=== PATIENT | female | born 1975 | race Caucasian/White ===

== ENCOUNTER 2018-06-18 15:47 | Emergency (ER) | payer OTHER ==
[2018-06-18 16:40] VITALS: BP 103/54
--- NOTE | 2018-06-18 16:41 | UC ---
Respiratory Complaint HPI - HPI Summary HPI Summary: 43 yo female presents with cough and chest congestion for the last week getting progressively worse. Has felt feverish, but has not taken her temperature. She has a hx of asthma and "walking pna". Has an albuterol inhaler at home, but has not been using it. Denies sinus symptoms, SOB, chest pain, n/v. - History of Current Complaint Chief Complaint: UCRespiratory Stated Complaint: COUGH,SORE THROAT Time Seen by Provider: 06/18/18 16:41 Hx Obtained From: Patient Hx Last Menstrual Period: 06/08/2018 Onset/Duration: Gradual Onset Severity Initially: Mild Severity Currently: Moderate Pain Intensity: 5 Pain Scale Used: 0-10 Numeric Character: Cough: Nonproductive - Allergies/Home Medications Allergies/Adverse Reactions: Allergies Allergy/AdvReac Type Severity Reaction Status Date / Time pseudoephedrine Allergy Palpitation Verified 06/18/18 16:34 s Home Medications: Home Medications Fluticasone-Salmeterol 250-50* [Advair Diskus 250-50*] 1 puff INH DAILY [History Confirmed 06/18/18] PMH/Surg Hx/FS Hx/Imm Hx Respiratory History: Asthma - Surgical History Surgical History: Yes Surgery Procedure, Year, and Place: c section. kidney stones "blasted" - Family History Known Family History: Positive: Respiratory Disease - Social History Occupation: Employed Full-time Lives: With Family Alcohol Use: Occasionally Substance Use Type: None Smoking Status (MU): Never Smoked Tobacco Review of Systems All Other Systems Reviewed And Are Negative: Yes Constitutional: Positive: Negative Skin: Positive: Negative Eyes: Positive: Negative ENT: Positive: Sore Throat Respiratory: Positive: Cough Cardiovascular: Positive: Negative Gastrointestinal: Positive: Negative Neurovascular: Positive: Negative Neurological: Positive: Negative Psychological: Positive: Negative Physical Exam - Summary Physical Exam Summary: GENERAL: NAD. WDWN. No pain distress. SKIN: No rashes, sores, lesions, or open wounds. HEENT: Head: AT/NC Eyes: Conjunctiva clear without inflammation or discharge. Ears: Hearing grossly normal. TMs intact, no bulging, erythema, or edema. Nose: Nasal mucosa pink and moist. NTTP maxillary and frontal sinus. Throat: Posterior oropharynx without exudates, erythema, or tonsillar enlargement. Uvula midline. NECK: Supple. Nontender. No lymphadenopathy. CHEST: Mild wheezing throughout. No r/r. No accessory muscle use. Breathing comfortably and in no distress. CV: RRR. Without m/r/g. Pulses intact. Cap refill <2seconds NEURO: Alert. PSYCH: Age appropriate behavior. Triage Information Reviewed: Yes Vital Signs: Initial Vital Signs Temp 98.8 F 06/18/18 16:35 Pulse 76 06/18/18 16:35 Resp 18 06/18/18 16:35 BP 103/54 06/18/18 16:35 Pulse Ox 100 06/18/18 16:35 Vital Signs Reviewed: Yes Diagnostic Evaluation - Laboratory O2 Sat by Pulse Oximetry: 100 Respiratory Course/Dx - Course Course Of Treatment: Suspect bronchitis. Given her hx of asthma and PNA - will treat with anbx today. - Differential Dx/Diagnosis Provider Diagnosis: Bronchitis Discharge - Sign-Out/Discharge Documenting (check all that apply): Patient Departure All imaging exams completed and their final reports reviewed: No Studies - Discharge Plan Condition: Stable Disposition: HOME Prescriptions: Azithromycin TAB* [Zithromax TAB (Z-RITESH) 250 mg #6 tabs] 2 tab PO .TODAY, THEN 1 DAILY #1 ritesh Benzonatate CAP* [Tessalon 100 MG CAP*] 100 mg PO TID PRN #21 cap PRN Reason: Cough Codeine Phosphate/Guaifenesin [Guaifen-Codeine 100-10 mg/5 ml] 5 ml PO BEDTIME PRN #35 ml MDD 5mL PRN Reason: Cough Patient Education Materials: Asthma (ED), Acute Bronchitis (ED) Referrals: Halle Freitas NP [Primary Care Provider] - Additional Instructions: If you develop a fever, shortness of breath, chest pain, new or worsening symptoms - please call your PCP or go to the ED. Please start using your albuterol inhaler 1-2 puffs every 6 hours - Billing Disposition and Condition Condition: STABLE Disposition: Home
== END 2018-06-18 16:57 | disposition home or self-care (01) ==
LOC: UCEAST 15:47
DX: J40 Bronchitis, not specified as acute or chronic (principal); J45.909 Unspecified asthma, uncomplicated; Z88.8 Allergy status to other drugs, medicaments and biological substances
CPT/HCPCS: 99212; G0463

== ENCOUNTER 2018-11-24 08:34 | Emergency (ER) | payer OTHER ==
[2018-11-24 09:04] VITALS: BP 132/81
--- NOTE | 2018-11-24 09:40 | UC ---
Skin Complaint HPI - HPI Summary HPI Summary: 43-year-old woman comes in with a chief complaint of rash. Rash started on the left ankle 6 days ago after [place]. The rash started above her sock line on bear skin. Since then it spread to the other ankle. Patient was concerned about the possibility of fleabites. She said her house and is going from one flea. Nobody else is having a rash. Overnight she is been getting a couple more spots one on the inside of her right upper leg and 1 on the right forearm. The rash is pruritic. Topical Benadryl does help. No fevers or chills feels well otherwise. Has not seen any vesicles. No drainage from the rash. - History of Current Complaint Chief Complaint: UCSkin Time Seen by Provider: 11/24/18 09:31 Stated Complaint: SKIN COMPLAINT Hx Last Menstrual Period: 06/08/2018 Pain Intensity: 0 - Allergy/Home Medications Allergies/Adverse Reactions: Allergies Allergy/AdvReac Type Severity Reaction Status Date / Time pseudoephedrine Allergy Palpitation Verified 11/24/18 08:59 s Home Medications: Home Medications diPHENhydraMINE PO* [Benadryl PO 25 MG TAB*] 25 mg PO Q6H PRN 11/24/18 [History Confirmed 11/24/18] PMH/Surg Hx/FS Hx/Imm Hx Previously Healthy: Yes - Surgical History Surgical History: Yes Surgery Procedure, Year, and Place: c section. kidney stones "blasted" - Family History Known Family History: Positive: Respiratory Disease - Social History Alcohol Use: Occasionally Substance Use Type: None Smoking Status (MU): Never Smoked Tobacco Review of Systems All Other Systems Reviewed And Are Negative: Yes Constitutional: Positive: Negative Skin: Positive: Other - SEE HPI Eyes: Positive: Negative ENT: Positive: Negative Respiratory: Positive: Negative Cardiovascular: Positive: Negative Gastrointestinal: Positive: Negative Motor: Positive: Negative Neurovascular: Positive: Negative Musculoskeletal: Positive: Negative Neurological: Positive: Negative Psychological: Positive: Negative Is Patient Immunocompromised?: No Physical Exam Triage Information Reviewed: Yes Appearance: Well-Appearing, No Pain Distress, Well-Nourished Vital Signs: Initial Vital Signs Temp 98.4 F 11/24/18 08:59 Pulse 77 11/24/18 08:59 Resp 18 11/24/18 08:59 BP 132/81 11/24/18 08:59 Pulse Ox 100 11/24/18 08:59 Vital Signs Reviewed: Yes Eye Exam: Normal Eyes: Positive: Conjunctiva Clear Neck: Positive: Supple Respiratory: Positive: No respiratory distress Musculoskeletal Exam: Normal Musculoskeletal: Positive: Strength Intact, ROM Intact Neurological Exam: Normal Neurological: Positive: Alert, Muscle Tone Normal Psychological Exam: Normal Psychological: Positive: Age Appropriate Behavior Skin: Positive: Other - ERYTHEMATOUS RAISED SCATTERED RASH ON B/L ANKLES; EACH LESION IS 1-3CM IN SIZE. TWO OF THEM ARE LINEAR. 1CM SAME RASH ON RT FOREARM AND RT INNER THIGH. Course/Dx - Course Course Of Treatment: MOST PROBABLY CONTACT DERMATITIS FROM POISON HERNANDO LIKE SOURCE. REEVAL IF WORSE OR NOT IMPROVED. - Diagnoses Provider Diagnosis: Rash Discharge - Sign-Out/Discharge Documenting (check all that apply): Patient Departure All imaging exams completed and their final reports reviewed: No Studies - Discharge Plan Condition: Stable Disposition: HOME Prescriptions: methylPREDNISolone [Medrol Dosepak 4 MG*] 0 mg PO .SEE KT INSTRUCTION #1 kt Patient Education Materials: Acute Rash (ED), Dermatitis (ED) Referrals: Halle Freitas NP [Primary Care Provider] - Additional Instructions: FOLLOW UP WITH YOUR DOCTOR IF NOT COMPLETELY IMPROVED. GET RECHECKED SOONER IF YOUR CONDITION WORSENS OR ANY QUESTIONS OR CONCERNS. - Billing Disposition and Condition Condition: STABLE Disposition: Home
== END 2018-11-24 09:44 | disposition home or self-care (01) ==
LOC: UCCORT 08:34
DX: R21 Rash and other nonspecific skin eruption (principal)
CPT/HCPCS: 99212; G0463